=== PATIENT | female | born 1970 | race Caucasian/White ===

== ENCOUNTER 2017-01-31 21:17 | Emergency (ER) | payer MEDICARE, MEDICAID ==
[~2017-01-31 21:17] MED LIST: ABILIFY20 MG PO; ABILIFY30 MG; ACIPHEX20 MG; ADVAIR 2501 DISK W/D; ADVAIR 2501 DISK W/D IH; ADVIL PM CAPLET1 TAB PO; ALAVERT10 MG; ALBUTEROL17 GM; ALPRAZOLAM1 M3 PO; AMARYL2 MG; AMARYL2 MG PO; ATENOLOL50 MG; CARVEDILOL12.5 M1 PO; CATAPRES0.1 MG PO; CETIRIZINE HCL10 M1 PO; CIPRO500 M2 PO; CLONIDINE HCL0.1 M2 PO; COLACE100 MG PO; COLESTEROL MED; COMPAZINE25 MG/SUPP; DICLOFENAC SODI75 MG; DIFLUCAN150 MG PO; DIPHENHYDRAMINE25 PO; EFFEXOR XR150 MG; EFFEXOR XR150 MG PO; FAMOTIDINE20 MG PO; FLEXERIL10 MG PO; GABAPENTIN600 M2 PO; GLIMEPIRIDE2 M1 PO; GLUCOPHAGE1000 MG; GLUCOPHAGE500 MG; HYDROCHLOROTHIA25 MG; HYDROCODON-ACE1 EAC7 PO; HYDROCODONE/APA1 TAB; IRON325 ( 65 ); LAMICTAL100 MG; LATUDA80 M1 PO; LEVAQUIN250 MG PO; LEVOTHROID25 MCG; LEVOTHROID25 MCG PO; LISINOPRIL40 M1 PO; LISINOPRIL40 MG; LISINOPRIL40 MG PO; LITHIUM CARBON150 M1 PO; LITHIUM CARBON150 MG; LITHIUM CARBON150 MG PO; LITHIUM CARBON300 MG; LORCET 10/650 T1 TAB PO; LUNESTA3 MG; LUNESTA3 MG PO; MACROBID 100 M100 MG PO; MAXALT5 MG; METFORMIN HCL500 M2 PO; NORCO 10/325 TA1 TAB; NORCO 5/325 TAB1 TAB PO; NORCO 5/3251 TAB PO; NYSTATIN; NYSTATIN10 GM PO; NYSTATIN10 GM TP; PERCOCET 5/3251 TAB PO; PHENERGAN25 MG/SUPP RC; POTASSIUM CHLO10 ME1 PO; PRAVASTATIN SOD40 M1 PO; PRINIVIL10 MG; PROMETHAZINE HC25 MG; PROMETHAZINE25 MG PO; PROVENTIL17 GM; PROVENTIL17 GM IH; PYRIDIUM100 M2 PO; REGLAN10 MG; ROZEREM8 MG; SENNA-S TABLET1 TAB; SEROQUEL300 MG; SEROQUEL400 MG; SINGULAIR10 MG; SINGULAIR10 MG PO; SOMA250 MG PO; SOMA350 M1; SOMA350 M1 PO; SOMA350 MG PO; TOPAMAX100 MG; TOPAMAX100 MG PO; TOPROL XL100 MG; TOPROL XL100 MG PO; TRIAMTERENE-HC1 EAC3 PO; VIIBRYD40 M1 PO; VOSPIRE ER8 MG; XANAX1 MG PO; ZOCOR40 MG; ZOCOR40 MG PO; ZOFRAN ODT4 MG/UDTAB PO; ZOFRAN4 MG PO; ZOVIRAX5 GM; [UNRECOGNIZED DRUG - OTHER]
[2017-01-31 23:35] LABS: BASO % 0.3 % (0-2); EOS % 2.1 % (0-7); EOSINOPHIL ABSOLUTE COUNT 0.2 tho/cmm (0.0-0.7); HCT-HEMATOCRIT 41.3 % (34.0-49.0); HGB-HEMOGLOBIN 14.1 gm/dl (12.0-15.5); IMMATURE GRANULOCYTES ABSOLUTE 0.07 tho/cmm (0-0.03); IMMATURE GRANULOCYTES PERCENT 0.7 % (0-0.3); LYMPH % 21.5 % (20-45); LYMPH ABSOLUTE COUNT 2.2 tho/cmm (0.8-4.5); MCH (MEAN CORPUSCULAR HGB) 27.9 pg (28.0-32.0); MCHC MEAN CORPUSCULAR HGB CONC 34.1 % (32.0-36.0); MCV (MEAN CELL VOLUME) 81.6 fl (82.0-96.0); MEAN PLATELET VOLUME 10.4 cmc (9.4-12.4); MONO % 7.3 % (0-12); MONOCYTE ABSOLUTE COUNT 0.8 tho/cmm (0.0-1.2); NEUTROPHIL ABSOLUTE COUNT 7.1 tho/cmm (1.6-8.0); NEUTROPHIL-AUTOMATED 7.1 tho/cmm (1.6-8.0); NEUTROPHILS % 68.1 % (40-80); PLATELET COUNT 212 tho/cmm (150-450); RED BLOOD COUNT 5.06 mil/cmm (4.00-5.20); RED CELL DISTRIBUTION WIDTH 12.8 % (12.4-16.4); WHITE BLOOD COUNT 10.4 tho/cmm (4.0-10.0)
[2017-01-31 23:50] LABS: ALB/GLOB RATIO 0.7 (0.8-2.0); ALBUMIN 3.2 g/dl (3.5-5.0); ALKALINE PHOSPHATASE 138 U/L (33-138); ALT/SGPT 64 U/L (12-78); ANION GAP 13 mmol/L (0-20); AST/SGOT 50 U/L (10-40); BILIRUBIN,TOTAL 0.5 mg/dl (0-1.5); BLOOD UREA NITROGEN 9 mg/dl (6-24); CALCIUM 8.4 mg/dl (8.5-10.5); CARBON DIOXIDE-VENOUS 28 mmol/L (22-32); CHLORIDE 99 mmol/l (96-110); CREATININE 0.78 mg/dl (0.50-1.10); GLUCOSE 203 mg/dL (70-110); LIPASE 126 U/L (73-393); POTASSIUM 3.4 mmol/L (3.7-5.1); SODIUM 137 mmol/L (135-145); eGFR VALUE FOR BLACK >90 mL/Min
[2017-02-01 01:14] LABS: URINE APPEARANCE HAZY; URINE COLOR ORANGE; URINE SPECIFIC GRAVITY 1.005 (1.003-1.030)
[2017-02-01 01:15] LABS: URINE BILIRUBIN MODERATE (NEG); URINE BLOOD NEGATIVE (NEG); URINE GLUCOSE (UA) NEGATIVE (NEG); URINE KETONE NEGATIVE (NEG); URINE LEUKOCYTE ESTERASE POSITIVE (NEG); URINE NITRITE POSITIVE (NEG); URINE PROTEIN POSITIVE (NEG)
[2017-02-01 01:23] LABS: URINE RBC 0 /[HPF] (0-5)
[2017-02-01 01:24] LABS: URINE BACTERIA 1+
[2017-02-01] MEDS ORDERED: ZOFRAN4 M2 PO ×2 (02:48→02:50)
[2017-02-01] MEDS ORDERED: NORCO 7.5-3251 EACH PO (02:48)
[2017-02-01] MEDS ORDERED: FLOMAX0.4 M1 PO ×2 (02:48→02:50)
[2017-02-01] MEDS ORDERED: HYDROCODON-ACE1 EA17 PO (02:50)
== END 2017-02-01 03:00 ==
LOC: EDMED 21:17
PROVIDERS: Family Medicine
DX: N13.2 Hydronephrosis with renal and ureteral calculous obstruction (principal); E11.9 Type 2 diabetes mellitus without complications; I10 Essential (primary) hypertension; E78.5 Hyperlipidemia, unspecified; Z90.710 Acquired absence of both cervix and uterus; Z90.89 Acquired absence of other organs
CPT/HCPCS: J0780; J1170; J2270; J2405; J7030